=== PATIENT | female | born 1975 | race Caucasian/White ===

== ENCOUNTER 2018-11-07 11:27 | Outpatient (CLI) | payer BC, SELFPAY ==
[2018-11-07 13:05] LABS: FREE T4 1.05 ng/dL (0.76-1.46)
[2018-11-08 11:00] LABS: Anion Gap 10.2 mmol/L (3-11); BUN 12 mg/dL (7-18); CO2 26.8 mmol/L (21.0-32.0); CREATININE 1.03 mg/dL (0.55-1.02); Calcium 8.8 mg/dL (8.5-10.1); Chloride 103 mmol/L (98-107); Cholesterol 274 mg/dL (50-200); Estimated GFR 59.05 (mL/min/1.73m2); Glucose 93 mg/dL (70-100); HDL Cholesterol 42 mg/dL (40-60); LDL CHOLESTEROL 209 mg/dL (<100); Potassium 4.1 mmol/L (3.5-5.1); Sodium 140 mmol/L (136-145); TSH 1.16 uIU/mL (0.358-3.74); Triglyceride 114 mg/dL (30-150)
== END 2018-11-07 11:47 ==
PROVIDERS: PCP Nurse Practitioner Family; Visit Provider Nurse Practitioner Family
DX: E03.9 Hypothyroidism, unspecified (principal)
CPT/HCPCS: 36415; 80048; 80061; 83721; 84439; 84443

== ENCOUNTER 2019-03-11 11:08 | Outpatient (CLI) | payer BC, SELFPAY ==
[2019-03-11 13:25] LABS: ALT 24 U/L (12-78); AST 22 U/L (15-37); Albumin 4.2 g/dL (3.4-5.0); Alkaline Phosphatase 102 U/L (46-116); Anion Gap 11.6 mmol/L (3-11); BUN 17 mg/dL (7-18); Bilirubin, Total 0.4 mg/dL (0.2-1.0); CO2 25.4 mmol/L (21.0-32.0); CREATININE 1.18 mg/dL (0.55-1.02); Calcium 9.2 mg/dL (8.5-10.1); Chloride 101 mmol/L (98-107); Cholesterol 203 mg/dL (50-200); Estimated GFR 50.48 (mL/min/1.73m2); Glucose 97 mg/dL (70-100); HDL Cholesterol 38 mg/dL (40-60); LDL CHOLESTEROL 137 mg/dL (<100); Potassium 4.1 mmol/L (3.5-5.1); Sodium 138 mmol/L (136-145); Total Protein 7.8 g/dL (6.4-8.2); Triglyceride 117 mg/dL (30-150)
== END 2019-03-11 11:28 ==
PROVIDERS: PCP Nurse Practitioner Family; Visit Provider Nurse Practitioner Family
DX: E78.5 Hyperlipidemia, unspecified (principal)
CPT/HCPCS: 36415; 80053; 80061; 83721

== ENCOUNTER 2019-11-27 08:08 | Outpatient (CLI) | payer BC, SELFPAY ==
[2019-11-27 09:45] LABS: ALT 26 U/L (14-59); AST 22 U/L (15-37); Albumin 3.9 g/dL (3.4-5.0); Alkaline Phosphatase 94 U/L (46-116); Anion Gap 6.8 mmol/L (3-11); BUN 14 mg/dL (7-18); Bilirubin, Total 0.7 mg/dL (0.2-1.0); CO2 29.2 mmol/L (21.0-32.0); CREATININE 1.19 mg/dL (0.55-1.02); Calcium 8.9 mg/dL (8.5-10.1); Calculated LDL 106 mg/dL (<100); Chloride 103 mmol/L (98-107); Cholesterol 157 mg/dL (<200); Estimated GFR 49.74 (mL/min/1.73m2); Glucose 87 mg/dL (74-106); HDL Cholesterol 37 mg/dL (40-60); Potassium 4.7 mmol/L (3.5-5.1); Sodium 139 mmol/L (136-145); TSH 8.21 uIU/mL (0.36-3.74); Total Protein 7.3 g/dL (6.4-8.2); Triglyceride 74 mg/dL (<150)
[2019-11-27 10:05] LABS: FREE T4 0.68 ng/dL (0.76-1.46)
== END 2019-11-27 08:28 ==
PROVIDERS: PCP Nurse Practitioner Family; Visit Provider Nurse Practitioner Family
DX: E03.9 Hypothyroidism, unspecified (principal); E78.5 Hyperlipidemia, unspecified; Z86.32 Personal history of gestational diabetes
CPT/HCPCS: 36415; 80053; 80061; 83036; 84439; 84443

== ENCOUNTER 2020-05-27 03:07 | Outpatient (CLI) | payer BC, SELFPAY ==
[2020-05-27 13:25] LABS: Anion Gap 10.6 mmol/L (3-11); BUN 9 mg/dL (7-18); CO2 24.4 mmol/L (21.0-32.0); CREATININE 1.05 mg/dL (0.55-1.02); Calcium 8.9 mg/dL (8.5-10.1); Chloride 102 mmol/L (98-107); Estimated GFR 57.47 (mL/min/1.73m2); FREE T4 1.31 ng/dL (0.76-1.46); Glucose 84 mg/dL (74-106); Potassium 4.1 mmol/L (3.5-5.1); Sodium 137 mmol/L (136-145); TSH 0.24 uIU/mL (0.36-3.74)
== END 2020-05-27 03:27 ==
LOC: LBO 03:07 → LOS 12:05
PROVIDERS: PCP Nurse Practitioner Family; Visit Provider Nurse Practitioner Family
DX: E03.9 Hypothyroidism, unspecified (principal); N17.9 Acute kidney failure, unspecified
CPT/HCPCS: 36415; 80048; 84439; 84443

== ENCOUNTER 2020-05-29 16:03 | Outpatient (REF) | payer BC, SELFPAY ==
--- NOTE | 2020-05-29 15:30 | PAPFT_PTH ---
PATIENT: Henna Molina LOC: [facility] U#:[id number] AGE/SX: 44/F ROOM: RE05/29/[address]: SULMA Vallecillo : 1975 BED: DIS: 05/29/2020 SPEC #: [id number] RECD: 05/29/20 18:20 STATUS: DEVON RERegulo #: [id number] YANY: 05/29/20 15:[address]: Dyan Royal DEPT: [facility] Cytology RECD BY: Aggie Ocampo ENTERED: 05/29/20 18:20 SP TYPE: PAPFT MARTHA DR: SULMA Norwood Tissues: 1 - CX/ENDOCX FOR PAP SMEARS Procedures: PAP THIN PREP/UVM Screening HPV DNA PROBE Comments: [id number]
[2020-06-01 13:35] LABS: Chlamydia Result Negative (Negative); GC Result Negative (Negative)
== END 2020-05-29 16:23 ==
LOC: LBN 16:03
PROVIDERS: PCP Nurse Practitioner Family; Visit Provider Nurse Practitioner Family
DX: Z11.3 Encounter for screening for infections with a predominantly sexual mode of transmission (principal); Z11.51 Encounter for screening for human papillomavirus (HPV)
CPT/HCPCS: 87491; 87591; 88142; 87624

== ENCOUNTER 2020-06-18 00:46 | Outpatient (CLI) | payer BC, SELFPAY ==
--- NOTE | 2020-06-18 08:00 | DI.MAMMO_ITS ---
EXAM: MAMMO SCREENING CLINICAL HISTORY: screening,Z12.39 TECHNIQUE: Mammograms were interpreted according to the usual protocol including computer analysis w [employer] CAD system, tomosynthesis and C-view imaging. COMPARISON: No exams were available for comparison FINDINGS: The breasts are composed of scattered fibroglandular densities, Breast Density category B. No suspicious masses or suspicious microcalcifications are seen. No skin thickening or abnormal axillary lymph nodes are seen. There has been no significant change from prior exams. IMPRESSION: BI-RADS Category 1, Negative mammogram Yearly screening mammography is recommended. Breast Density Category B, scattered fibroglandular densities. A negative radiographic report should not delay biopsy if a dominant or clinically suspicious mass is present. Up to ten percent of cancers are not identified on mammography. A negative report may reinforce clinical impression. Adenosis and dense breasts may obscure an underlying neoplasm. False positive reports average 6 to 10%. Patient will receive a letter notifying them of these results.
== END 2020-06-18 01:06 ==
PROVIDERS: PCP Nurse Practitioner Family; Visit Provider Nurse Practitioner Family
DX: Z12.31 Encounter for screening mammogram for malignant neoplasm of breast (principal); R92.2 Inconclusive mammogram
CPT/HCPCS: 77063; 77067

== ENCOUNTER 2020-07-16 14:42 | Outpatient (REF) | payer BC, SELFPAY ==
[2020-07-16 14:02] LABS: FREE T4 1.59 ng/dL (0.76-1.46); TSH 0.13 uIU/mL (0.36-3.74)
== END 2020-07-16 15:02 ==
LOC: LBN 14:42
PROVIDERS: PCP Nurse Practitioner Family; Visit Provider Nurse Practitioner Family
DX: E03.9 Hypothyroidism, unspecified (principal)
CPT/HCPCS: 84439; 84443

== ENCOUNTER 2020-07-24 13:29 | Outpatient (CLI) | payer BC, SELFPAY ==
--- NOTE | 2020-07-24 12:59 | DI.RAD_ITS ---
EXAM: XR SHOULDER LT COMPLETE 2+V CLINICAL HISTORY: Left shoulder pain with limited ROM, tendinopathy of rotator cuff, M67.912. TECHNIQUE: 2D digital imaging was performed. COMPARISON: No exams were available for comparison FINDINGS: BONES: No acute fracture is present. No bony destructive lesion is seen. JOINTS: No dislocation present. SOFT TISSUE: Normal. IMPRESSION: Unremarkable radiographs of the left shoulder. DATA REPOSITORY: RADIATION DOSE DELIVERED:
== END 2020-07-24 13:49 ==
PROVIDERS: PCP Nurse Practitioner Family; Visit Provider Nurse Practitioner Family
DX: M25.512 Pain in left shoulder (principal); M67.912 Unspecified disorder of synovium and tendon, left shoulder
CPT/HCPCS: 73030

== ENCOUNTER 2020-08-27 01:29 | Outpatient (CLI) | payer BC, SELFPAY ==
--- NOTE | 2020-08-27 09:00 | DI.MRI_ITS ---
CLINICAL HISTORY: Rotator cuff tear/ weakness,M75.102. TECHNIQUE: Multiplanar multisequence MRI was performed. COMPARISON: None FINDINGS: MR examination of the shoulder was performed according to the usual protocol. There is no significant effusion of the glenohumeral joint. There is small quantity of fluid in the subacromial bursa. Bones and labrum: There is abnormal bony signal in the glenoid process. There is abnormal signal in the inferior glenoid labrum particularly anteriorly, possibility of nondisplaced ALPSA lesion or Bank art lesion is raised. There is also abnormal signal in the region of the inferior glenohumeral ligam ent which may represent a strain or tear. Mildly abnormal signal also seen in the humeral neck infer omedially. Rotator cuff: There is apparent superior margin linear tearing of the subscapularis tendon which is probably full-thickness. The attachment on the humerus appears essentially intact. There is abnorma l signal in anterior and superior portions of supraspinatus tendon, no gross attachment tear is seen. There is normal signal in infraspinatus and teres minor muscle and tendon. There is abnormal signa l in the rotator interval consistent with strain. Biceps tendon and anchor: Biceps tendon and anchor show normal signal and no evidence of a tear. Esteban ps tendon is normally positioned in the bicipital groove. IMPRESSION: Predominantly linear tears of anterior and superior aspect of supraspinatus tendon and superior aspec t of subscapularis tendon. Abnormal signal in the anterior inferior labrum and adjacent soft tissues are suspicious for Bankart or nondisplaced ALPSA lesion, question IG HL tear. DATA REPOSITORY:
== END 2020-08-27 01:49 ==
PROVIDERS: PCP Nurse Practitioner Family; Visit Provider Student in an Organized Health Care Education/Training Program
DX: M75.102 Unspecified rotator cuff tear or rupture of left shoulder, not specified as traumatic (principal)
CPT/HCPCS: 73221

== ENCOUNTER 2021-02-03 02:58 | Outpatient (CLI) | payer BC, SELFPAY ==
[2021-02-03 12:07] LABS: Source Nasal/Nares
[2021-02-03 18:17] LABS: COVID-19 PCR Negative (Negative)
== END 2021-02-03 02:59 | disposition home or self-care (01) ==
LOC: LBO 02:58
PROVIDERS: PCP Nurse Practitioner Family; Visit Provider Student in an Organized Health Care Education/Training Program
DX: Z20.822 Contact with and (suspected) exposure to COVID-19 (principal); Z01.818 Encounter for other preprocedural examination
CPT/HCPCS: 87635

== ENCOUNTER 2021-02-05 06:18 | Day surgery (SDC) | payer BC, SELFPAY ==
[2021-02-05] VITALS (9 sets, daily range): BP systolic 106–129; BP diastolic 77–92; PULSE 65–94; RESP 12–22; TEMP 36.3–36.8; O2SAT 98–100
[2021-02-05] MEDS: Lactated Ringers 1,000 ML 100 ML IV (07:07)
[2021-02-05] MEDS: Ketorolac 15 MG/ML VIAL IVP (08:10)
[2021-02-05] MEDS: LORazepam 2 MG/ML VIAL 0.5 MG IVP (08:25)
[2021-02-05] MEDS: fentaNYL 100 MCG/2 ML VIAL IVP (08:40)
[2021-02-05] MEDS: oxyCODONE 5 MG TAB PO (09:14)
--- NOTE | 2021-02-05 10:17 | PDOC.DSDIS_ITS ---
Discharge Plan Disposition Patient Disposition: HOME Condition: Stable Discharge Details Reason For Visit: Left shoulder ABDI Attending Provider: Nate Alexander Primary Care Provider: Jo Ann Beaver Home Meds and New Rx's Prescriptions: New ibuprofen 800 mg tablet 800 mg PO BID PRN (Reason: pain, moderate) Qty: 60 RF: 0 oxycodone 5 mg tablet 5 - 10 mg PO Q4H PRN (Reason: moderate to severe pain) Qty: 16 RF: 0 Continued acetaminophen 500 mg capsule 1,000 mg PO TID PRN (Reason: pain) Qty: 180 RF: 0 rosuvastatin 10 mg tablet 10 mg PO DAILY Qty: 90 RF: 4 levothyroxine 100 mcg tablet 100 mcg PO DAILY Qty: 90 RF: 0 norethindrone acetate 5 mg tablet 5 mg PO DAILY Qty: 90 RF: 4 dextroamphetamine-amphetamine 10 mg tablet 10 mg PO DAILY MDD 10mg Qty: 28 RF: 0 dextroamphetamine-amphetamine 20 mg capsule,extended release 24hr 20 mg PO DAILY MDD 20mg Qty: 28 RF: 0 Discontinued ibuprofen 800 mg tablet 800 mg PO TID PRN (Reason: pain) Qty: 90 RF: 0 Discharge Instructions Additional Instructions: Surgery: Left shoulder manipulation under anesthesia Activity: Return to full activities as soon as comfortable. Encourage daily active shoulder range of motion and stretching exercises. Physical therapy has already been arranged. Your first appointment is today 3:30 PM with Cindy Flynn. Prescriptions: Ibuprofen 800 mg take 1 every 12 hours with a meal as needed for moderate pain and swelling Oxycodone 5 mg take 1-2 every 4-6 hours as needed for severe pain You may use [id number] Tylenol (acetaminophen) as needed for mild pain. These pain medications may be taken all at once or in different combinations as needed. Also, recommend Colace (docusate) as a stool softener as surgery and pain medicine cause constipation. Dressings: None Follow-up: 10-[address] Alexander (02/17/21 at 1:30 PM) Let us know right away if you develop any redness, drainage, fevers, chest pain, or trouble breathing. Do not drink alcohol or drive for at least 24 hours after anesthesia. Please call the office during business hours with any questions or concerns. Stand Alone Forms: Anesthesia Discharge Inst., Anes.Nerve Block Instructions Referrals: Nate Alexander MD [ [facility] STAFF PHYSICIAN] - Discharge Orders Discharge Orders: Discharge Order (Routine); Ordered 02/05/21 Ordered By: Nate Alexander DS: Diagnosis Discharge Diagnosis (1) Amplified musculoskeletal pain: Status: Acute (2) Adhesive capsulitis of left shoulder: Status: Acute (3) Strain of tendon of left rotator cuff: Status: Acute
--- NOTE | 2021-02-05 10:23 | ROE_ITS ---
Date of service: 02/05/21 Time of Service: 07:30 Operative Note Operative Note DATE OF PROCEDURE: 02/05/21 PRE-OP DIAGNOSIS: Left shoulder adhesive capsulitis POST-OP DIAGNOSIS: same PROCEDURE: Left shoulder manipulation under anesthesia, CPT #27061 SURGEON: Nate Alexander RADIOLOGY AIDE: None None ANESTHESIA TYPE: General:No Airway Refer to Anesthesia Record ESTIMATED BLOOD LOSS: 0 PATHOLOGY: none sent TOURNIQUET TIME: 0 COMPLICATIONS: None Patient was transported to: PACU Patient's condition: stable Implants: None Indications: Please see complete medical record for details. Procedure Description: In the operating room, general anesthesia was induced. The patient was positioned supine on the stretcher. All bony prominences were well-padded. Preoperative antibiotics were omitted. The correct patient, procedure, and side of the procedure were all verified prior to beginning. The left shoulder was examined. Preoperative noted stiffness remained with forward elevation about 135 degrees, external rotation at the side about 15 degrees, internal rotation about 60 degrees. Steady, progressive manipulation in forward elevation and external rotation was used to release moderate adhesions. Forward elevation released quickly to full. External rotation at the side and at 90 degrees took moderate force taking care to maintain a short lever arm with slow steady progression until there was released to full as well. There is only minimal release into internal rotation with the arm at 90 deg milan. Full range of motion was checked compared to contralateral side with no differences. Steady stretching in all directions and about 100 repetitions into forward elevation, abduction with external rotation, abduction with internal rotation, and external rotation at the side were all repeated confirming full release. Range of motion was noted to be past 160 degrees forward elevation, 75 degrees external rotation, and near 90 degrees internal rotation. There were no mechanical symptoms or crepitation about the glenohumeral joint. Photos were obtained to review with the patient and include with this report. The patient awoke from anesthesia without complication and was transferred to [facility] recovery room in a stable condition.
== END 2021-02-05 10:35 | disposition home or self-care (01) ==
PROVIDERS: PCP Nurse Practitioner Family; Visit Provider Student in an Organized Health Care Education/Training Program
PROC: (CPT 23700; principal; 2021-02-05 07:30)
DX: M75.02 Adhesive capsulitis of left shoulder (principal); M75.22 Bicipital tendinitis, left shoulder; M75.52 Bursitis of left shoulder; M75.102 Unspecified rotator cuff tear or rupture of left shoulder, not specified as traumatic
CPT/HCPCS: 23700; J1100; J1885; J2060; J2250; J2405; J2704; J3010

== ENCOUNTER 2021-05-24 19:18 | Outpatient (REF) | payer BC, SELFPAY ==
[2021-05-24 21:47] LABS: FREE T4 1.06 ng/dL (0.76-1.46); TSH 2.42 uIU/mL (0.36-3.74)
== END 2021-05-24 19:19 | disposition home or self-care (01) ==
LOC: LBN 19:18
PROVIDERS: PCP Nurse Practitioner Family; Visit Provider Nurse Practitioner Family
DX: E03.9 Hypothyroidism, unspecified (principal)
CPT/HCPCS: 84439; 84443

== ENCOUNTER 2022-06-30 05:19 | Outpatient (CLI) | payer BC, SELFPAY ==
[2022-06-30 13:27] LABS: Anion Gap 5.9 mmol/L (3-11); BUN 15 mg/dL (7-18); CO2 26.1 mmol/L (21.0-32.0); CREATININE 1.2 mg/dL (0.55-1.02); Calcium 8.1 mg/dL (8.5-10.1); Chloride 104 mmol/L (98-107); Estimated GFR 57.24 (mL/min/1.73m2); FREE T4 0.98 ng/dL (0.76-1.46); Glucose 135 mg/dL (74-106); Potassium 3.8 mmol/L (3.5-5.1); Sodium 136 mmol/L (136-145); TSH 2.88 uIU/mL (0.36-3.74)
[2022-07-01 17:53] LABS: Cholesterol 265 mg/dL (<200); HDL Cholesterol 33 mg/dL (40-60); Triglyceride 471 mg/dL (<150)
[2022-07-01 18:07] LABS: Lab Add On Test DONE
[2022-07-01 18:19] LABS: LDL CHOLESTEROL 204 mg/dL (<100)
== END 2022-06-30 05:20 | disposition home or self-care (01) ==
LOC: LOS 05:19
PROVIDERS: Family Medicine; PCP Nurse Practitioner Family; Visit Provider Nurse Practitioner Family
DX: E03.9 Hypothyroidism, unspecified (principal); R73.03 Prediabetes; E78.5 Hyperlipidemia, unspecified
CPT/HCPCS: 36415; 80048; 80061; 83721; 83036; 84439; 84443

== ENCOUNTER → 2022-08-25 02:53 | Outpatient (CLI) | payer BC, SELFPAY ==
--- NOTE | 2022-08-25 08:45 | DI.MAMMO_ITS ---
Exam(s) MAMMO SCREENING EXAM: MAMMO SCREENING CLINICAL HISTORY: screening,Z12.39 TECHNIQUE: Bilateral full field digital CC and MLO mammographic images were obtained with 3D tomosyn thesis and utilizing computer aided detection (CAD). COMPARISON: Available for comparison. FINDINGS: Masses/Architectural Distortion: There is a stable nodular density in the medial left breast on the C C view. No suspicious masses or areas of architectural distortion are identified. Microcalcifications: No suspicious pleomorphic-type are seen. Skin Thickening/Nipple Retraction: None. IMPRESSION: 1. No significant interval change with no specific features of malignancy noted. 2. Unless there is more urgent need, screening mammography is recommended, as per [employer] guidelines. BI-RADS Category 1 - Negative Breast Density - Category B - Scattered areas of fibroglandular density Breast density category C or D implies that the patient has dense breast tissue. Dense breast tissue is very common and is not abnormal but dense breast tissue can make it harder to find cancer on a ma mmogram. Also, dense breast tissue may increase their breast cancer risk. This information about the result of the mammogram report was provided to the patient to raise their awareness. Use this report when you speak with the patient about their risks for breast cancer, which includes their family hist ory. At that time, you may recommend for more screening tests (Ultrasound or MRI) as they might be us eful based on their risk. A negative radiographic report should not delay biopsy if a dominant or clinically suspicious mass is present. Up to ten percent of cancers are not identified on mammography. A negative report may reinforce clinical impression. Adenosis and dense breasts may obscure an underlying neoplasm. False positive reports average 6 to 10%. Patient will receive a letter notifying them of these results.
== END ==
PROVIDERS: PCP Nurse Practitioner Family; Visit Provider Nurse Practitioner Family
DX: Z12.31 Encounter for screening mammogram for malignant neoplasm of breast (principal)
CPT/HCPCS: 77063; 77067

== ENCOUNTER 2023-03-15 03:07 | Outpatient (CLI) | payer BC, SELFPAY ==
[2023-03-15 13:02] LABS: Calculated LDL 114 mg/dL (<100); Cholesterol 168 mg/dL (<200); HDL Cholesterol 37 mg/dL (40-60); Triglyceride 89 mg/dL (<150)
== END 2023-03-15 03:08 | disposition home or self-care (01) ==
LOC: LOS 03:07
PROVIDERS: PCP Nurse Practitioner Family; Visit Provider Nurse Practitioner Family
DX: E78.5 Hyperlipidemia, unspecified (principal)
CPT/HCPCS: 36415; 80061

== ENCOUNTER 2023-04-03 10:18 | Emergency (ER) | payer BC, SELFPAY ==
[2023-04-03 10:21] VITALS: BP 115/74; PULSE 90; RESP 16; TEMP 37.1; O2SAT 100
--- NOTE | 2023-04-03 10:30 | DI.US_ITS ---
Exam(s) US LOWER EXTREMITY VENOUS RT EXAM: US LOWER EXTREMITY VENOUS RT CLINICAL HISTORY: leg swelling. ? DVT TECHNIQUE: Right lower extremity venous ultrasound performed using grayscale, color-flow, and spectr al Doppler analysis. COMPARISON: No exams were available for comparison FINDINGS: The right common femoral, femoral and popliteal veins demonstrate normal compressibility, augmentatio n, and color Doppler. The posterior tibial and peroneal veins are patent. The saphenofemoral junctio n is unremarkable. There is no evidence of a Frances cyst. The soft tissues are unremarkable. IMPRESSION: 1. No evidence of a right lower extremity DVT. 2. Findings were discussed with the emergency department at 11:30 a.m. on 04/03/2023. DATA REPOSITORY:
--- NOTE | 2023-04-03 10:30 | DI.RAD_ITS ---
Exam(s) XR TIB/FIB RT EXAM: XR TIB/FIB RT CLINICAL HISTORY: right leg pain. TECHNIQUE: 2D digital imaging was performed of the right tibia and fibula. Two images were obtained. AP and lateral views were obtained. COMPARISON: No exams were available for comparison FINDINGS: BONES: No acute fracture is present. No bony destructive lesion is seen. Visualized portion of knee a nd ankle joints are unremarkable. SOFT TISSUE: Normal. IMPRESSION: Unremarkable radiographs of the right tibia and fibula. DATA REPOSITORY: RADIATION DOSE DELIVERED:
--- NOTE | 2023-04-03 10:39 | ED.GENADUL_ITS ---
Discharge Plan Disposition Patient Disposition: Home Condition: Good Discharge Details Clinical Impression: Cellulitis, Leg swelling Primary Care Provider: Jo Ann Beaver ED Provider: Pepito Neil Home Meds and New Rx's Prescriptions: New amoxicillin-pot clavulanate 875-125 mg tablet 1 tab PO BID 10 Days Qty: 20 0RF Continued acetaminophen 500 mg capsule 1,000 mg PO TID PRN (Reason: pain) Qty: 180 0RF Rx Instructions: Take 2 pills three times a day as needed for pain rosuvastatin 10 mg tablet 10 mg PO DAILY Qty: 90 3RF levothyroxine 100 mcg tablet 100 mcg PO DAILY Qty: 90 4RF Rx Instructions: Take 1 pill daily norethindrone acetate 5 mg tablet 7.5 mg PO DAILY Qty: 135 3RF doxycycline hyclate 100 mg capsule 100 mg PO BID Qty: 20 0RF mupirocin 2 % ointment 1 applic topical TID Qty: 15 0RF ibuprofen 800 mg tablet 800 mg PO BID PRN (Reason: pain, moderate) Qty: 60 0RF Discontinued cephalexin 500 mg capsule 500 mg PO QID Qty: 40 0RF Discharge Instructions Instructions: Cellulitis (ED) Additional Instructions: You were seen in the emergency department for worsening swelling and redness to your right spivey. We performed labs that were unremarkable. We performed an ultrasound of your right leg and an x-ray that were also unremarkable. You likely have a lingering skin infection called cellulitis. Stop taking the Keflex and start taking Augmentin. Continue with your doxycycline. Take ibuprofen 600 mg every 6 hours for any discomfort. Return for any nausea or vomiting, high fevers or chills, or any worsening symptoms. Follow-up with your primary care doctor. Referrals: Jo Ann Beaver, SUMEET [Primary Care Provider] - 1 week Medical Decision Making 47-year-old female presents with worsening rash on the right anterior spivey. Likely represents a cellulitis. Already on Keflex and Doxy and can broaden the Keflex with Augmentin if the patient thinks his symptoms are worsening and can send prescription for this. She is worried about other causes. We will get broad labs look for electrolyte or metabolic causes that could be contributing to the patient's symptoms though I doubt these etiologies. We will send ESR and CRP in case the patient has another return visit to monitor treatment. She is worried about a blood clot and will get a right lower extremity ultrasound to evaluate for DVT though I think that this is very unlikely and if negative will not pursue the diagnosis further. We will get x-ray of the right lower extremity to screen for osteomyelitis but I also doubt this diagnosis. Will await initial testing and will provide some analgesia. If testing is unremarkable we will broaden her antibiotics and discharge her and have her follow-up with her primary care doctor. I did explain to her that I think the small ulcerations on the front of her spivey due to this unique location of the body may take some extra time to heal but the redness should start to improve. Medical Records Medical records reviewed: Yes I reviewed the patient's medical records. Imaging Data Radiologic Study: Attestation: I personally reviewed and interpreted this imaging study as follows: Imaging: X-Ray (right tib tib) Radiologist's impression: Improved x-ray unremarkable Radiologic Study #2: Attestation: I personally reviewed and interpreted this imaging study as follows: Imaging: Ultrasound (right leg for DVT) Radiologist's impression: Ultrasound negative for DVT Lab Data Lab results reviewed: Yes I reviewed the patient's lab results. Labs: Labs grossly unremarkable other than mildly elevated CRP HPI General Mode of arrival: ambulatory . Date/Time Provider Initiated Documentation: 04/03/23 10:22 . Limitations to Documentation: no limitations . Information obtained by: patient . HPI Narrative: 47-year-old female presents with rash on the right lower leg. Got bit by a deer tick according to her primary care doctor. They removed it and a few days later she developed a rash. She was started on Keflex and Doxy. She has been on this for a few days but symptoms continue to worsen. She was worried and came here. Just has a worsening rash in the right lower leg at the spivey. Little bit of swelling in this area. She is also worried because she has a history of factor V Leiden and worried she could have a blood clot. No fevers or chills. No nausea or vomiting. Denies any other symptoms. Related Data Home Medications Medication Instructions Recorded Confirmed acetaminophen 500 mg capsule 1,000 mg PO TID PRN pain #180 08/10/20 04/03/23 tab-caps ibuprofen 800 mg tablet 800 mg PO BID PRN pain, moderate 02/05/21 04/03/23 #60 tabs levothyroxine 100 mcg tablet 100 mcg PO DAILY #90 tab-caps 07/01/22 04/03/23 rosuvastatin 10 mg tablet 10 mg PO DAILY #90 tabs 08/17/22 04/03/23 norethindrone acetate 5 mg tablet 7.5 mg PO DAILY #135 tab-caps 03/24/23 04/03/23 doxycycline hyclate 100 mg capsule 100 mg PO BID #20 caps 03/31/23 04/03/23 mupirocin 2 % topical ointment 1 applic topical TID #15 grams 03/31/23 04/03/23 amoxicillin 875 mg-potassium 1 tab PO BID 10 days #20 tabs 04/03/23 clavulanate 125 mg tablet Previous Rx's Medication Instructions Recorded acetaminophen 500 mg capsule 1,000 mg PO TID PRN pain #180 08/10/20 tab-caps ibuprofen 800 mg tablet 800 mg PO BID PRN pain, moderate 02/05/21 #60 tabs levothyroxine 100 mcg tablet 100 mcg PO DAILY #90 tab-caps 07/01/22 rosuvastatin 10 mg tablet 10 mg PO DAILY #90 tabs 08/17/22 norethindrone acetate 5 mg tablet 7.5 mg PO DAILY #135 tab-caps 03/24/23 doxycycline hyclate 100 mg capsule 100 mg PO BID #20 caps 03/31/23 mupirocin 2 % topical ointment 1 applic topical TID #15 grams 03/31/23 amoxicillin 875 mg-potassium 1 tab PO BID 10 days #20 tabs 04/03/23 clavulanate 125 mg tablet Allergies Allergy/AdvReac Type Severity Reaction Status Date / Time No Known Allergies Allergy Verified 04/03/23 10:24 General Stated Complaint: Cellulitis NAILA: 4 Review of Systems Constitutional Constitutional: Denies chills, Denies fever(s) and Denies headache(s) Eyes Eyes: Denies change in vision ENT Ears, Nose, Mouth, and Throat: Denies headache(s) and Denies odynophagia Cardiovascular Cardiovascular: Denies chest pain and Denies dyspnea Respiratory Respiratory: Denies dyspnea Gastrointestinal Gastrointestinal: Denies abdominal pain, Denies diarrhea, Denies nausea, Denies odynophagia and Denies vomiting Genitourinary Genitourinary: Denies dysuria Musculoskeletal Musculoskeletal: Denies myalgias Integumentary/Breasts Skin/Breast: Reports changing lesions and Reports other (rash) Neurologic Neurologic: Denies behavioral changes and Denies headache(s) Psychiatric Psychiatric: Denies behavioral changes Endocrine Endocrine: Denies heat intolerance Hematologic/Lymphatic Hematologic/Lymphatic: Denies lymphadenopathy PFSH All Active Problems Antithrombin III deficiency (Chronic) Factor V Leiden carrier (Chronic) heterozygous. No hx of thrombosis. Major depressive disorder (Chronic) Generalized anxiety disorder (Chronic) ADHD, predominantly inattentive type (Chronic) Endometriosis (Chronic) (presumed) Treated with Norethindrone (not a candidate for COCs secondary to thrombophilias) Hypothyroidism (Chronic) Hyperlipidemia (Chronic) Prediabetes (Chronic) Globus sensation (Chronic) Seborrheic dermatitis (Chronic) Plaque psoriasis (Chronic) Cellulitis (Acute) Leg swelling (Acute) Surgical History H/O LEEP (~2010) S/P colonoscopy (03/12/13) S/P right rotator cuff repair (~2008) by Dr. Coombs at [facility] Family History Mother Arteriovenous malformation of brain Grand mal seizure Father , at 60 Factor V Leiden Heart disease COPD (chronic obstructive pulmonary disease) Alcohol abuse Sister No problems noted. Brother Alcohol abuse Son Schizophrenia Son No problems noted. Daughter No problems noted. Daughter No problems noted. Maternal Grandfather No problems noted. Maternal Grandmother No problems noted. Paternal Grandfather Alcohol abuse Paternal Grandmother Alcohol abuse Social History Smoking/Tobacco Use Status: Never Second Hand Exposure: Yes Smoking risk assessment performed?: Yes Alcohol Intake: current Alcohol Intake frequency: holidays/special occasions only Alcohol type: wine Drug use: Rarely Substance use type: marijuana Caregiver/Support person: No Household members: children Housing: apartment Communication Needs: None Do you need help understanding health information?: Never Pets and animals: No Sexually active: No Do you think of yourself as: straight/heterosexual Current gender identity: female What is your relationship status?: How often do you talk on the phone with friends or family?: three or more times per week How often do you get together with friends or relatives?: twice per week How often do you attend roman catholic or tenriism services?: decline to answer Do you belong to any clubs or organized social groups?: no Panel score (0-1 are the most socially isolated patients): 1 What type of physical activity do you participate in: walking Frequency: 3-4 times per week Hilary/Mosque: None Special hilary needs: No Seatbelt use: always Helmet use: Yes Helmet use: always Drive intox or ride w/intox putaway driver: No Do you feel safe at home: Yes Do you feel safe in your relationship?: Yes Female Reproductive History Menstrual control method: other History History 6 Para 5 Hx # Term Pregnancies Multiple births Hx # Pregnancies Ectopic pregnancies AB induced Hx Number of Living Children 4 AB spontaneous Exam Const General: cooperative Nutritional Appearance: average body habitus Orientation: alert, awake and oriented x3 HENMT Head: normal to inspection Ears: external ears normal Mouth: moist mucous membranes Eyes Pupils: PERRL EOM: EOM intact bilaterally and No nystagmus Neck Neck: full ROM and no tracheal deviation Chest Chest: normal inspection of the chest Resp Auscultation: clear to auscultation bilaterally Cardio Rate: regular rate Rhythm: regular rhythm GI Inspection: normal to inspection Palpation: soft, no guarding, not rigid and nontender Back/Spine/Pelvis Back: No no CVA tenderness Thoracic/Lumbar Spine: thoracic and lumbar spine normal to inspection Skin General skin exam: no rashes or lesions noted Neuro General: patient alert, patient awake and patient oriented x3 Cranial Nerves: CN's II-XI intact bilaterally, PERRL and no nystagmus Cognition: normal cognition Motor: muscle tone normal throughout and strength 5/5 throughout Sensory Exam: no sensory deficits noted Extrem General: normal to inspection Other: 3 small ulcerations on the anterior spivey with some surrounding redness swelling and tenderness. Not indurated. Compartments of the lower extremity are soft. 2+ DP and PT pulses with sensation and motor intact in the bilateral lower extremity. Full range of motion of all joints of the lower extremity. Course Vital Signs Vital signs: Vital Signs Temperature 37.1 C 04/03/23 10:21 Pulse 90 04/03/23 10:21 Respiratory Rate 16 04/03/23 10:21 Blood Pressure 115/74 04/03/23 10:21 Pulse Oximetry 100 04/03/23 10:21 Temperature 37.1 C 04/03/23 10:21 Temperature Source Oral 04/03/23 10:21 Pulse 90 04/03/23 10:21 Respiratory Rate 16 04/03/23 10:21 Respiratory Effort Normal 04/03/23 10:28 Blood Pressure 115/74 04/03/23 10:21 Blood Pressure Position Sitting 04/03/23 10:21 Pulse Oximetry 100 04/03/23 10:21 Oxygen Delivery Method Room Air 04/03/23 10:21 Oxygen Flow Rate 0 04/03/23 10:21 Pain Level 4 04/03/23 10:21
[2023-04-03] MEDS: Amoxicillin 875/Clav. 125 TAB PO (10:51)
[2023-04-03] MEDS: Ketorolac 30 MG/ML VIAL IM (10:52)
[2023-04-03 11:08] LABS: ESR 9 mm/hr (0-20)
[2023-04-03 11:10] LABS: Abs Immature Grans 0.01 10^3/uL (0.0-0.06); Absolute Basophil Count 0.02 10^3/uL (0.0-0.2); Absolute Eosinophil Count 0.09 10^3/uL (0.0-0.7); Absolute Lymphocyte Count 1.73 10^3/uL (1.2-3.4); Absolute Neutrophil Count 3.69 10^3/uL (1.2-6.7); Basophils % 0.3; Eosinophils % 1.5; HCT 38.5 % (36.0-46.0); HGB 12.8 g/dL (11.2-15.7); Immature Grans % 0.2; Lymphocytes % 29.6; MCHC 33.2 % (32.0-36.0); MCV 90 fL (80-95); MPV 9.4 fL (8.0-11.0); Monocytes % 5.1; Neutrophils % 63.3; Platelet Count 213 10^3/uL (130-400); RBC 4.27 10^6/uL (3.93-5.22); RDW 13.1 % (11.7-14.6); RDW-SD 43.6 fL; WBC 5.84 10^3/uL (4.4-10.8)
[2023-04-03 11:20] LABS: ALT 23 U/L (14-59); AST 17 U/L (15-37); Albumin 3.6 g/dL (3.4-5.0); Alkaline Phosphatase 108 U/L (46-116); Anion Gap 5.3 mmol/L (3-11); BUN 15 mg/dL (7-18); Bilirubin, Total 0.3 mg/dL (0.2-1.0); C-Reactive Protein 0.54 mg/dL (0.0-0.3); CO2 26.7 mmol/L (21.0-32.0); CREATININE 1.1 mg/dL (0.55-1.02); Calcium 8.8 mg/dL (8.5-10.1); Chloride 105 mmol/L (98-107); Estimated GFR 63.15 (mL/min/1.73m2); Glucose 97 mg/dL (74-106); Potassium 3.8 mmol/L (3.5-5.1); Sodium 137 mmol/L (136-145); Total Protein 7.6 g/dL (6.4-8.2)
== END 2023-04-03 11:58 | disposition home or self-care (01) ==
PROVIDERS: Emergency Provider Student in an Organized Health Care Education/Training Program; PCP Nurse Practitioner Family
DX: L03.115 Cellulitis of right lower limb (principal); R22.41 Localized swelling, mass and lump, right lower limb
CPT/HCPCS: 36415; 80053; 85652; 96372; 99284; 73590; 85025; 86140; 93971; J1885

== ENCOUNTER 2023-07-18 20:41 | Outpatient (REF) | payer BC, SELFPAY | END 2023-07-18 20:42 | disposition home or self-care (01) | LOC: LBN 20:41 | PROVIDERS: PCP Nurse Practitioner Family; Visit Provider Nurse Practitioner Family | DX: L03.115 Cellulitis of right lower limb (principal); S80.861D Insect bite (nonvenomous), right lower leg, subsequent encounter | CPT/HCPCS: 87070; 87205 ==

== ENCOUNTER 2023-07-20 04:02 | Outpatient (CLI) | payer BC, SELFPAY ==
[2023-07-20 12:24] LABS: HGB 13.2 g/dL (11.2-15.7); MCH 30.6 pg (27.0-33.0); MCHC 33.8 % (32.0-36.0); MCV 90 fL (80-95); MPV 9.8 fL (8.0-11.0); Platelet Count 196 10^3/uL (130-400); RBC 4.32 10^6/uL (3.93-5.22); RDW 13.2 % (11.7-14.6); RDW-SD 43.8 fL; WBC 4.56 10^3/uL (4.4-10.8)
[2023-07-20 12:44] LABS: Hemoglobin A1C 5.8 % (<5.7)
[2023-07-20 13:21] LABS: Anion Gap 7.8 mmol/L (3-11); BUN 9 mg/dL (7-18); CO2 26.2 mmol/L (21.0-32.0); CREATININE 1.2 mg/dL (0.55-1.02); Calculated LDL 101 mg/dL (<100); Chloride 103 mmol/L (98-107); Cholesterol 160 mg/dL (<200); Estimated GFR 56.89 (mL/min/1.73m2); Glucose 97 mg/dL (74-106); HDL Cholesterol 37 mg/dL (40-60); Potassium 4.1 mmol/L (3.5-5.1); Sodium 137 mmol/L (136-145); TSH (W/Ref FT4) 2.92 uIU/mL (0.36-3.74); Triglyceride 110 mg/dL (<150)
[2023-07-21 10:59] LABS: Lyme Ab w Rflx to Lyme Confirm Negative (Negative)
[2023-07-22 14:56] LABS: Anaplasma phagocytophilum Negative (Negative); B. miyamotoi PCR Negative (Negative); Babesia divergens/MO-1 Negative (Negative); Babesia duncani Negative (Negative); Babesia microti Negative (Negative); Ehrlichia chaffeensis Negative (Negative); Ehrlichia ewingii/canis Negative (Negative); Ehrlichia muris eauclairensis Negative (Negative)
== END 2023-07-20 04:03 | disposition home or self-care (01) ==
LOC: LOS 04:02
PROVIDERS: Nurse Practitioner Family; PCP Nurse Practitioner Family; Visit Provider Nurse Practitioner Family
DX: Z00.00 Encounter for general adult medical examination without abnormal findings (principal); W57.XXXA Bitten or stung by nonvenomous insect and other nonvenomous arthropods, initial encounter
CPT/HCPCS: 36415; 80048; 80061; 85027; 87798; 83036; 84443; 86618

== ENCOUNTER 2023-08-18 20:04 | Outpatient (REF) | payer BC, SELFPAY ==
[2023-08-18 13:29] LABS: Bilirubin Negative (Negative); Blood Trace-intact (Negative); Clarity Clear (Clear); Glucose Negative (Negative); Ketones Negative (Negative); Leukocyte Esterase Trace (Negative); Nitrite Negative (Negative); Urobilinogen 0.2 mg/dL (Up to 0.2)
[2023-08-18 13:43] LABS: COMMENT (LAB VIEW ONLY) 36.78 mg/dL; Microalb ug/mg Crea 6.5 ug/mg Cr
[2023-08-18 13:44] LABS: Bacteria Few HPF (Negative); C & S Indicated? No/Sq. Contamination; Casts Negative LPF (Negative); Crystals Negative HPF (Negative); Epithelial Cells Moderate HPF (Negative); Mucus Negative (Negative)
== END 2023-08-18 20:05 | disposition home or self-care (01) ==
LOC: NCHCN 20:04
PROVIDERS: PCP Nurse Practitioner Family; Visit Provider Nurse Practitioner Family
DX: N18.30 Chronic kidney disease, stage 3 unspecified (principal)
CPT/HCPCS: 81003; 81015; 82043; 82570

== ENCOUNTER → 2023-09-01 00:32 | Outpatient (CLI) | payer BC, SELFPAY ==
--- NOTE | 2023-09-01 08:00 | DI.US_ITS ---
Exam(s) US RENAL EXAM: US RENAL CLINICAL HISTORY: chronic kidney disease, n18.30. TECHNIQUE: Rodriguez scale, color and spectral Doppler were used. COMPARISON: No exams were available for comparison FINDINGS: Renal size in cm: Right: 9.0 left: 0 Echogenicity: Normal Hydronephrosis: No Cyst or mass: No Nephrolithiasis: No Bladder:Normal. Prevoid vol:452 cc Postvoid vol:0 cc IMPRESSION: Negative renal ultrasound. DATA REPOSITORY:
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
== END ==
PROVIDERS: PCP Nurse Practitioner Family; Visit Provider Nurse Practitioner Family
DX: Z12.31 Encounter for screening mammogram for malignant neoplasm of breast (principal); N18.30 Chronic kidney disease, stage 3 unspecified
CPT/HCPCS: 76770; 77063; 77067

== ENCOUNTER 2024-04-08 10:47 | Outpatient (REF) | payer BC, SELFPAY ==
[2024-04-08 13:31] LABS: Bilirubin Negative (Negative); Blood Small (Negative); Clarity Clear (Clear); Glucose Negative (Negative); Ketones Negative (Negative); Leukocyte Esterase Negative (Negative); Nitrite Negative (Negative); Urobilinogen 0.2 mg/dL (Up to 0.2); pH 6.5 (5-8)
[2024-04-08 13:46] LABS: Bacteria Negative HPF (Negative); C & S Indicated? No; Casts Negative LPF (Negative); Crystals Negative HPF (Negative); Epithelial Cells Few HPF (Negative); Mucus Negative (Negative); RBC 0-2 HPF (0-2); WBC Negative HPF (0-5)
== END 2024-04-08 10:48 | disposition home or self-care (01) ==
LOC: LBN 10:47
PROVIDERS: PCP Nurse Practitioner Family; Visit Provider Nurse Practitioner Family
DX: N39.46 Mixed incontinence (principal); R82.998 Other abnormal findings in urine
CPT/HCPCS: 81003; 81015

== ENCOUNTER 2024-06-08 11:14 | Emergency (ER) | payer BC, SELFPAY ==
[2024-06-08] VITALS (26 sets, daily range): BP systolic 122–148; BP diastolic 88–89; PULSE 80–112; RESP 12–24; TEMP 36.9; O2SAT 96–98
[2024-06-08] MEDS: Acetaminophen 500 MG TAB 1000 MG PO (11:53)
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
== END 2024-06-08 14:08 | disposition home or self-care (01) ==
PROVIDERS: Emergency Provider Physician Assistant; PCP Nurse Practitioner Family
DX: S16.1XXA Strain of muscle, fascia and tendon at neck level, initial encounter (principal); S09.90XA Unspecified injury of head, initial encounter; R51.9 Headache, unspecified; W22.8XXA Striking against or struck by other objects, initial encounter; V49.49XA Driver injured in collision with other motor vehicles in traffic accident, initial encounter
CPT/HCPCS: 99284; 70450; 72125; 99283

== ENCOUNTER 2024-12-10 18:22 | Outpatient (REF) | payer BC, SELFPAY | END 2024-12-10 18:23 | disposition home or self-care (01) | LOC: LBN 18:22 | PROVIDERS: PCP Nurse Practitioner Family; Visit Provider Nurse Practitioner Family | DX: L98.9 Disorder of the skin and subcutaneous tissue, unspecified (principal); B95.61 Methicillin susceptible Staphylococcus aureus infection as the cause of diseases classified elsewhere | CPT/HCPCS: 87077; 87070; 87186; 87205 ==

== ENCOUNTER 2024-12-25 09:56 | Outpatient (CLI) | payer BC, SELFPAY ==
[2024-12-25 12:25] LABS: Abs Immature Grans 0.01 10^3/uL (0.0-0.06); Absolute Basophil Count 0.03 10^3/uL (0.0-0.2); Absolute Eosinophil Count 0.11 10^3/uL (0.0-0.7); Absolute Lymphocyte Count 2.15 10^3/uL (1.2-3.4); Absolute Monocyte Count 0.34 10^3/uL (0.1-0.8); Absolute Neutrophil Count 3.96 10^3/uL (1.2-6.7); Basophils % 0.5 %; Eosinophils % 1.7 %; HCT 41.4 % (36.0-46.0); HGB 13.6 g/dL (11.2-15.7); Immature Grans % 0.2 %; Lymphocytes % 32.6 %; MCH 30.7 pg (27.0-33.0); MCHC 32.9 % (32.0-36.0); MCV 94 fL (80-95); MPV 9.7 fL (8.0-11.0); Monocytes % 5.2 %; Neutrophils % 59.8 %; Platelet Count 248 10^3/uL (130-400); RBC 4.43 10^6/uL (3.93-5.22); RDW 13.5 % (11.7-14.6); RDW-SD 46.4 fL
[2024-12-25 12:48] LABS: ALT 27 U/L (14-59); AST 20 U/L (15-37); Albumin 4.1 g/dL (3.4-5.0); Alkaline Phosphatase 116 U/L (46-116); Anion Gap 7.6 mmol/L (3-11); BUN 19 mg/dL (7-18); Bilirubin, Total 0.42 mg/dL (0.2-1.0); CO2 29.4 mmol/L (21.0-32.0); Calcium 9.2 mg/dL (8.5-10.1); Chloride 105 mmol/L (98-107); Estimated GFR 69.93 (mL/min/1.73m2); Glucose 92 mg/dL (74-106); PHOSPHORUS 3.3 mg/dL (2.6-4.7); Potassium 4.1 mmol/L (3.5-5.1); Sodium 142 mmol/L (136-145); Total Protein 7.8 g/dL (6.4-8.2)
[2024-12-25 13:04] LABS: Hemoglobin A1C 5.8 % (<5.7)
[2024-12-25 13:26] LABS: Vitamin D 25 Total 12.7 ng/mL (30-100)
[2024-12-25 19:56] LABS: Parathyroid Hormone,Intact 73.8 pg/mL (19.0-88.0)
[2024-12-26 13:11] LABS: HBs Antibody, Quant <3.1 mIU/mL (See Note); Hep B Surface Ab Negative (See Note); Hepatitis B Core Antibody Negative (Negative); Hepatitis B Surface Antigen Negative (Negative)
[2024-12-26 13:18] LABS: HIV-1/2 Ag & Ab Screen Negative (Negative)
[2024-12-26 13:35] LABS: Hepatitis C Ab w Rflx HCV PCR Negative (Negative)
[2024-12-27 16:36] LABS: Cystatin C, S 1.05 mg/L; eGFR by Cystatin C 72 mL/min/BSA (>60)
== END 2024-12-25 09:57 | disposition home or self-care (01) ==
LOC: LOS 09:57
PROVIDERS: PCP Nurse Practitioner Family; Referring Provider Nurse Practitioner Family; Visit Provider Nurse Practitioner Family
DX: Z11.4 Encounter for screening for human immunodeficiency virus [HIV] (principal); E78.5 Hyperlipidemia, unspecified; R73.03 Prediabetes; N18.30 Chronic kidney disease, stage 3 unspecified; Z11.59 Encounter for screening for other viral diseases
CPT/HCPCS: 36415; 80053; 82306; 82610; 86704; 86706; 86803; 87340; 87389; 83036; 83970; 84100; 84443; 84550; 85025

== ENCOUNTER 2024-12-25 11:31 | Outpatient (REF) | payer BC, SELFPAY ==
--- NOTE | 2024-12-25 10:15 | PAPFT_PTH ---
PATIENT: Henna Molina LOC: [facility] U#:[id number] AGE/SX: 49/F ROOM: RE12/25/[address]: SULMA Norwood : 1975 BED: DIS: 12/25/2024 SPEC #: [id number] RECD: 12/25/24 12:29 STATUS: DEVON LEWIS #: [id number] YANY: 12/25/24 10:[address]: Jo Ann Beaver DEPT: [facility] Cytology RECD BY: Yokasta Wayne Tissues: 1 - CX/ENDOCX FOR PAP SMEARS Procedures: PAP THIN PREP/[facility] Screening HPV DNA PROBE Comments: [id number] (HPV 16 & 18/45)
[2024-12-25 12:55] LABS: Bilirubin Negative (Negative); Blood Large (Negative); Clarity Cloudy (Clear); Glucose Negative (Negative); Ketones Negative (Negative); Leukocyte Esterase Negative (Negative); Nitrite Negative (Negative); Specific Gravity >= 1.030 (1.005-1.025); Urobilinogen 0.2 mg/dL (Up to 0.2); pH 5.5 (5-8)
[2024-12-25 13:11] LABS: Crystals Many Amorphous HPF (Negative)
[2024-12-25 13:12] LABS: PROTEIN 24.5 mg/dL; Prot/Crea Ur Ratio 0.09
[2024-12-25 13:17] LABS: Microalb ug/mg Crea 4.7 ug/mg Cr
[2024-12-25 13:33] LABS: WBC Negative HPF (0-5)
[2024-12-25 13:37] LABS: C & S Indicated? No; Mucus Negative (Negative)
== END 2024-12-25 11:32 | disposition home or self-care (01) ==
LOC: LBN 11:31
PROVIDERS: PCP Nurse Practitioner Family; Visit Provider Nurse Practitioner Family
DX: N18.30 Chronic kidney disease, stage 3 unspecified (principal); Z12.39 Encounter for other screening for malignant neoplasm of breast; Z12.11 Encounter for screening for malignant neoplasm of colon; L40.0 Psoriasis vulgaris; F33.9 Major depressive disorder, recurrent, unspecified; F41.1 Generalized anxiety disorder; E03.9 Hypothyroidism, unspecified; L71.0 Perioral dermatitis
CPT/HCPCS: 88142; 81003; 81015; 82043; 82565; 82570; 84156; 87624

== ENCOUNTER 2025-01-23 01:37 | Outpatient (CLI) | payer BC, SELFPAY | END 2025-01-23 01:57 | LOC: DI 01:38 | PROVIDERS: PCP Nurse Practitioner Family; Visit Provider Nurse Practitioner Family | DX: Z12.31 Encounter for screening mammogram for malignant neoplasm of breast (principal); R92.323 Mammographic fibroglandular density, bilateral breasts | CPT/HCPCS: 77063; 77067 ==